=== PATIENT | male | born 1950 | race Caucasian/White ===

== ENCOUNTER → 2017-06-06 | Outpatient (CLI) | payer OTHER ==
[2017-06-06 18:34] LABS: Blood Urea Nitrogen 17 mg/dL (9-20)
--- NOTE | 2017-06-10 08:00 | CT ---
EXAMINATION TYPE: CT urogram wo/w con DATE OF EXAM: 06/06/2017 COMPARISON: NONE HISTORY: Gross hematuria and frequent urination. CT DLP: 4191.9 mGycm CONTRAST: Performed and with IV Contrast, patient injected with 100ml mL of Omnipaque 300. CT Urography was performed with unenhanced followed by enhanced images of the kidneys, ureters and ur inary bladder. Delayed images were obtained. 3d reconstruction was perfromed at a separate work sta tion. FINDINGS: KIDNEYS/BLADDER: No hydronephrosis. No nephrolithiasis. Dominant simple cyst upper pole right kidne y which measures 5.5 cm in maximal dimension. Smaller adjacent cyst upper pole right kidney measuring 1.9 cm. There are no solid right-sided renal lesions detected. The left kidney demonstrates 2 simple cysts as well one within the upper pole measures maximal dimension of 4.7 cm with the second cyst id entified midpole left kidney exophytically and laterally and measures 1.9 cm. No solid left-sided rain al lesions identified. Pelvicalyceal systems and ureters fail demonstrate evidence for filling defect or hydronephrosis. There is marked enlargement of the prostate gland with mass effect upon the base of the urinary bladder. Mild urinary bladder wall thickening is noted diffusely which may reflect cys titis. LUNG BASES-: No visible nodule. No infiltrate. LIVER/GB: No calcified gallstones. No space occupying hepatic lesion. Biliary tree is of normal ca liber. There is evidence of hepatic steatosis. PANCREAS: No inflammation. No distinct mass. SPLEEN: No splenic enlargement. No lesion seen. ADRENALS: No nodule. No thickening. BOWEL: Normal appendix. Normal bowel caliber. No inflammation. GENITAL ORGANS: No gross abnormality. LYMPH NODES: No greater than 1cm abdominal or pelvic lymph nodes are appreciated. AORTA: No significant abnormality. OSSEOUS STRUCTURES: No significant abnormality is seen. OTHER: Fat-containing inguinal hernias noted. No significant additional abnormality is seen. IMPRESSION: 1. Simple renal cysts noted bilaterally without evidence for suspicious mass. 2. Marked enlargement of the prostate gland. 3. Mild diffuse urinary bladder wall thickening could reflect underlying cystitis. Correlate clinical ly.
== END | disposition home or self-care (01) ==
LOC: RADCTMAIN 17:52
PROVIDERS: ATTEND Urology
DX: N28.1 Cyst of kidney, acquired (principal); N40.0 Benign prostatic hyperplasia without lower urinary tract symptoms; N32.89 Other specified disorders of bladder
CPT/HCPCS: 82565; 84520; 74178; 36415; 74400; Q9967